=== PATIENT | female | born 1980 | race Caucasian/White ===

== ENCOUNTER 2019-04-01 17:51 | Day surgery (SDC) ==
[2019-04-01] MEDS ORDERED: NS 1,000 ML IV ONE ×2 (18:08→18:39)
--- NOTE | 2019-04-01 18:14 | PROVIDER DOCUMENTATION ---
HPI-Female /OB/Breast - General Stated Complaint: FEMALE Time Seen by Provider: 04/01/19 17:54 Source: reports: patient Allergies/Adverse Reactions: Patient Allergies Allergy/AdvReac Type Severity Reaction Status Date / Time cefaclor [From Ceclor] Allergy Severe ANAPHYLAXIS Verified 04/01/19 18:25 Home Medications: Home Medication List Medication Instructions Recorded Confirmed Last Taken Type Methadone HCl 27 mg PO DAILY 01/23/19 03/25/19 04/01/19 History Doxycycline 100 mg PO BID #10 tab 04/01/19 Unknown Rx Hydrocodone/Acetaminophen [Nowata 1 tab PO PRN PRN 04/01/19 04/01/19 04/01/19 History 7.5-325 Tablet] Ibuprofen [Ibu] 800 mg PO Q8H #90 tab 04/01/19 Unknown Rx Ferrous Sulfate 325 mg PO DAILY #30 tab 04/02/19 Unknown Rx - History of Present Illness-Female /OB Nature of Presenting Problem: 39 YO F presents with c/o vaginal bleeding and passing clots since today. 1 week ago she suffered miscarriage and was given medicine to pass the products by OBGYN. She was having minimal bleeding since then but it recently increased on today. Pt now feels faint and has been filling up pads and adult diapers with active vaginal bleeding. She follows with Dr. Delgado. Does patient report she is ?: No Location of complaint: reports: suprapubic Radiation: reports: none Quality of Pain: reports: cramping, pressure Severity in ED: reports: moderate Onset/Duration: reports: this afternoon Timing: reports: still present Context/Activities at Onset: reports: none Vaginal Symptoms: reports: abnormal bleeding, passing clots/tissue Vaginal Bleeding Amount: Copious/Excessive Urinary Symptoms: reports: no symptoms Related Symptoms: reports: pelvic pain, vaginal bleeding Similar Symptoms Previously?: No - LMP/ History : 2 Para: 1 : 1 Prior Delivery: vaginal Care: OB doctor Weeks/Months: 13 Age estimated by:: by dates Review of Systems - Adult - REVIEW OF SYSTEMS - ADULT Constitutional: denies: chills, fever Eyes: reports: no symptoms reported Ears, Nose, Mouth & Throat: reports: no symptoms reported Cardiovascular: denies: chest pain, palpitations, syncope Respiratory: reports: no symptoms reported Gastrointestinal: reports: see HPI, abdominal pain. denies: nausea, vomiting Genitourinary: reports: discharge, other (vaginal bleeding). denies: dysuria Musculoskeletal: reports: no symptoms reported Integumentary: reports: no symptoms reported Neurological: reports: no symptoms reported Psychiatric: reports: no symptoms reported Past History - Adult - PAST MEDICAL HISTORY-ADULT Review of Records: reports: Old Records Reviewed Major Childhood Illnesses: reports: history unknown Cardiovascular: reports: denies history Respiratory: reports: denies history Gastrointestinal: reports: denies history Obstetrical/Gynecological: reports: denies history Genitourinary: reports: denies history Musculoskeletal: reports: denies history Neurological: reports: denies history Endocrine/Immune: reports: denies history Other Conditions: reports: denies history - PRIOR SURGERIES/PROCEDURES Surgical/Procedure History: reports: appendectomy - IMMUNIZATION STATUS Childhood Immunizations: See Nurse Assessment Flu Vaccine: See Nurse Assessment - FAMILY HISTORY Family History: reviewed, not pertinent - SOCIAL HISTORY Smoking: cigarettes Substance Use: none presently/history of abuse, other (currently on methadone) Living Situation: family Physical Exam-General - PHYSICAL EXAM-ADULT Initial Vital Signs Reviewed: Yes - CONSTITUTIONAL General Appearance: alert, mild distress (from pain, tachycardia) - EYES Eyes: PERRL/EOMI, pink conjunctivae - HEAD, EARS, NOSE, MOUTH & THROAT HENMT: moist mucous membranes - NECK Neck: full range of motion - RESPIRATORY Respiratory: lungs clear, normal breath sounds, no respiratory distress - CARDIOVASCULAR Cardiovascular: tachycardia - GASTROINTESTINAL (ABDOMEN) Abdominal Exam: soft. negative: guarding, rigid, rebound - GENITOURINARY Female Genitalia/Pelvic Exam: active bleeding, other (passing clots) - MUSCULOSKELETAL Back Exam: normal inspection, no CVA tenderness Extremity: normal range of motion, normal gait - SKIN Integumentary: normal color, normal turgor, warm/dry - NEUROLOGIC Neurologic: grossly normal - PSYCHIATRIC Psych/Mental Status: oriented x 3, anxious Progress - PLAN OF CARE/RESULTS Progress/Plan/Lab Results: Orders Category Date Time Status Admit - [facility] Routine AdmDCTranf 04/01/19 19:28 Active Discharge/Transfer Patient Routine AdmDCTranf 04/02/19 08:05 Ordered Activity - Up Ad Beatrice ORDERED Care 04/01/19 21:20 Active Activity - Up with Assistance ORDERED Care 04/01/19 21:21 Active Activity - Up with Assistance ORDERED Care 04/01/19 22:42 Active Ambulate Patient-Not Phys Thx DAILY Care 04/01/19 21:21 Active Ambulate Patient-Not Phys Thx DAILY Care 04/01/19 22:42 Completed Apply Mechanical Device [QM] ORDERED Care 04/01/19 21:20 Active DVT/PE Risk Assess/Protocol [QM] ORDERED Care 04/01/19 19:28 Active Does patient desire to be vacc [QM] ONCE Care 04/02/19 00:49 Active Elevate Head of Bed DIRECTED Care 04/01/19 21:20 Active Elevate Head of Bed DIRECTED Care 04/01/19 22:42 Active IV Discontinuation ORDERED Care 04/02/19 08:05 Active Maintain Pain Control DIRECTED Care 04/01/19 21:20 Active Maintain Pain Control DIRECTED Care 04/01/19 22:42 Active May Shower .AM Care 04/01/19 21:20 Active Notify MD if DIRECTED Care 04/01/19 21:20 Active Post-Op Pneumonia Prevention DIRECTED Care 04/01/19 21:20 Completed Post-Op Pneumonia Prevention DIRECTED Care 04/01/19 22:41 Active Previous Flu Vaccine THIS SEAS [QM] ONCE Care 04/02/19 00:49 Active Saline Loc NOW Care 04/01/19 18:08 Active Surgery Consent (SOAP GRINDER Pt) .SUCTION DILATION AND Care 04/01/19 19:27 Active CURETTAGE Transfuse .Give-Transfuse Care 04/01/19 19:18 Active Turn, Cough and Deep Breathe Q2HR Care 04/01/19 21:20 Active Turn, Cough and Deep Breathe Q2HR Care 04/01/19 22:42 Active Vital Signs Order Q 8-HR ASSESS Care 04/01/19 19:28 Active Vital Signs Order Q4HR.AWAKE Care 04/01/19 21:20 Active US OBS COMPLETE < 14 WKS [US] Stat Exams 04/01/19 18:40 Ordered CBC WITH DIFF [HEME] Timed Lab 04/02/19 06:25 Completed CBC WITH ELECTRONIC DIFF [HEME] Stat Lab 04/01/19 18:17 Completed CBC WITH NO DIFF [HEME] Stat Lab 04/01/19 21:23 Completed COMPREHENSIVE METABOLIC PANEL [CHEM] Stat Lab 04/01/19 18:17 Completed LRPC (RED CELLS) [BBK] Stat Lab 04/01/19 18:17 Completed PROTIME WITH INR [COAG] Stat Lab 04/01/19 18:17 Completed PTT [COAG] Stat Lab 04/01/19 18:17 Completed QUANT TEST Stat Lab 04/01/19 18:17 Completed TYPE & SCREEN [BBK] Stat Lab 04/01/19 18:17 Completed 0.9% Sodium Chloride Inj [Ns] 1,000 ml Med 04/01/19 18:08 Discontinued IV 999 mls/hr 0.9% Sodium Chloride Inj [Ns] 1,000 ml Med 04/01/19 18:39 Discontinued IV 999 mls/hr 0.9% Sodium Chloride Inj [Ns] 500 ml Med 04/01/19 19:18 Discontinued IV As Directed mls/hr Albumin 25% Med 04/01/19 20:45 Discontinued 12.5 gm .ROUTE .STK-MED ONE Albumin 25% Med 04/01/19 20:45 Discontinued 12.5 gm .ROUTE .STK-MED ONE Chlorhexidine Gluconate [Peridex] Med 04/02/19 09:00 Discontinued 15 ml MT BID Doxycycline Med 04/02/19 09:00 Discontinued 100 mg PO BID Glycopyrrolate [Robinul] Med 04/01/19 19:47 Discontinued 0.2 mg .ROUTE .STK-MED ONE Hydrocodone/APAP 10 mg/325 mg [Nowata-10] Med 04/01/19 21:20 Discontinued 1 each PO Q4H PRN PRN Ibuprofen [Motrin] Med 04/01/19 21:30 Discontinued 800 mg PO Q8H Ketamine Med 04/01/19 20:26 Discontinued 500 mg .ROUTE .STK-MED ONE Ketorolac [Toradol] Med 04/01/19 18:53 Discontinued 30 mg .ROUTE .STK-MED ONE Ketorolac [Toradol] Med 04/01/19 18:45 Discontinued 30 mg IV NOW ONE Lactated Ringers Inj [Lr] 1,000 ml Med 04/01/19 21:30 Discontinued IV 125 mls/hr Lidocaine 2% Pf [Xylocaine-Mpf 2%] Med 04/01/19 19:47 Discontinued 5 ml .ROUTE .STK-MED ONE Methylergonovine [Methergine] Med 04/01/19 20:57 Discontinued 0.2 mg .ROUTE .STK-MED ONE Midazolam [Versed] Med 04/01/19 20:25 Discontinued 2 mg .ROUTE .STK-MED ONE Midazolam [Versed] Med 04/01/19 21:11 Discontinued 2 mg .ROUTE .STK-MED ONE Ondansetron [Zofran] Med 04/01/19 21:15 Discontinued 4 mg .ROUTE .STK-MED ONE Ondansetron [Zofran] Med 04/01/19 19:28 Discontinued 4 mg IV Q4H PRN PRN Oxycodone/APAP 10 mg/325 mg [Percocet-10] Med 04/01/19 18:33 Discontinued 1 each PO NOW ONE Propofol [Diprivan 1%] Med 04/01/19 19:47 Discontinued 200 mg .ROUTE .STK-MED ONE Incentive Spirometer Q4H Ot 04/01/19 21:30 Completed Incentive Spirometer Q4H Ot 04/01/19 22:45 Completed Incentive Spirometer Q4H Ot 04/02/19 01:30 Completed Incentive Spirometer Q4H Ot 04/02/19 02:45 Completed Incentive Spirometer Q4H Ot 04/02/19 05:30 Completed Incentive Spirometer Q4H Ot 04/02/19 06:45 Completed Result Diagrams: 04/02/19 06:25 04/01/19 18:17 - CONSULTS/PCP/HOSPITALIST Notification #1 *Consult/PCP/Hospitalist*: spoke with Dr. Estrada Time Discussed: 18:46 Consult Disposition: Will see in ED Departure - Departure Date of Disposition Decision: 04/01/19 Time of Disposition Decision: 19:50 DIAGNOSIS: Vaginal bleeding, Acute blood loss anemia, Incomplete miscarriage Disposition: OTHER 70 Certified Medical Emergency: Emergent Condition: Stable - Critical Care Note This patient required my direct & personal management of CC.: No Attestation - Physician/ REFUGIO Attestation The physician spent face to face time with patient:: Yes Advanced Practice Provider documentation review:: Supervising physician onsite and consulted in the evaluation and care of this patient. The physician did have a face to face encounter with the patient.
[2019-04-01] MEDS ORDERED: PERCOCET-10 PO ONE (18:33)
[2019-04-01 18:45] LABS: INR 1.03; PROTIME 13.6 Seconds (11.0-16.0)
[2019-04-01] MEDS ORDERED: TORADOL IV ONE (18:45)
[2019-04-01 18:46] LABS: PTT 32.5 Seconds (22.3-41.8)
[2019-04-01 18:51] LABS: BASO# 0.01 X1000 (0.0-0.2); BASO% 0.1 % (0.0-0.8); EOS# 0.14 X1000 (0.0-0.7); EOS% 1.3 % (0.0-10.0); HEMATOCRIT 27.3 % (37.0-47.0); IMM GRAN# 0.05 X1000 (0.0-0.04); IMM GRAN% 0.5 % (0.0-0.5); LYMPH# 2.38 X1000 (1.2-3.4); LYMPH% 22.4 % (20.5-51.1); MCH 31.7 PG (27-31); MCV 96.1 FL (81-99); MONO# 0.69 X1000 (0.11-0.59); MONO% 6.5 % (1.7-9.3); MPV 10.1 FL (7.4-10.4); NEUT# 7.36 X1000 (1.4-6.5); NEUT% 69.2 % (42.2-75.2); PLT 304 X1000 (130-400); RBC 2.84 XMIL (4.2-5.4); RDW 12.7 % (11.5-14.5); WBC 10.63 X1000 (4.8-10.8)
[2019-04-01 18:53] LABS: AGAP 14; ALB/GLOB RATIO 1.1; ALBUMIN 3.5 g/dL (3.5-5.0); ALKALINE PHOSPHATASE 57 U/L (32-104); BUN 7 mg/dL (8-22); CALCIUM 8.8 mg/dL (8.8-10.2); CHLORIDE 102 mmol/L (98-107); COSMO 274; CREATININE 0.5 mg/dL (0.5-0.9); ESTIMATED GFR > 60; GLUCOSE 99 mg/dL (70-104); GOT 13 U/L (10-30); GPT 6 U/L (10-36); POTASSIUM 3.4 mmol/L (3.5-5.1); SODIUM 138 mmol/L (136-145); TCO2 22 mmol/L (25-35); TOTAL BILIRUBIN < 0.15 mg/dL (0.20-1.00); TOTAL PROTEIN 6.6 g/dL (6.3-8.3)
[2019-04-01] MEDS ORDERED: TORADOL ONE (18:53)
[2019-04-01] MEDS ORDERED: NS 500 ML IV ONE (19:18)
[2019-04-01] MEDS ORDERED: ZOFRAN IV PRN (19:28)
[2019-04-01] MEDS ORDERED: XYLOCAINE-MPF 2% ONE (19:47)
[2019-04-01] MEDS ORDERED: ROBINUL ONE (19:47)
[2019-04-01] MEDS ORDERED: DIPRIVAN 1% ONE (19:47)
[2019-04-01] MEDS ORDERED: VERSED ONE ×2 (20:25→21:11)
[2019-04-01] MEDS ORDERED: KETAMINE ONE (20:26)
[2019-04-01] MEDS ORDERED: ALBUMIN 25% ONE ×2 (20:45)
[2019-04-01] MEDS ORDERED: METHERGINE ONE (20:57)
[2019-04-01] MEDS ORDERED: ZOFRAN ONE (21:15)
[2019-04-01] MEDS ORDERED: NORCO-10 PO PRN (21:20)
[2019-04-01 21:31] LABS: HEMOGLOBIN 7.3 g/dL (12.0-16.0); MCH 28.9 PG (27-31); MCHC 31.7 g/dL (33-37); MCV 90.9 FL (81-99); MPV 9.8 FL (7.4-10.4); RBC 2.53 XMIL (4.2-5.4); RDW 16.4 % (11.5-14.5); WBC 8.59 X1000 (4.8-10.8)
--- NOTE | 2019-04-02 00:38 | HISTORY AND PHYSICAL ---
HISTORY OF PRESENT ILLNESS: Ms Regalado is a 39-year-old G2, P1-0-1-1, who presents to the emergency room via ambulance with complaint of heavy vaginal bleeding x1 day. The patient reports passage of large blood clots starting today. History is significant for a 13 week miscarriage diagnosed 1 week ago. The patient was seen in the emergency department 1 week ago and reports passage of fetus and cord, which was sent to Pathology. The patient was given Cytotec for passage of remaining products of conception. However, patient only reports minimal bleeding since discharge from the emergency room 1 week ago until today, when large blood clots started to resume. The patient reports feeling faint, having shortness of breath and has been filling up pads and adult diapers within 1 to 2 hours. PAST MEDICAL HISTORY: Noncontributory. SURGICAL HISTORY: Appendectomy. MEDICATIONS: Lortab, methadone. GYNECOLOGIC HISTORY: Menarche at age 17. Denies any STD exposure. OBSTETRICAL HISTORY: G2, P1-0-1-1. Last vaginal delivery 11 years ago. ALLERGIES: Cefaclor, reaction swelling in the neck. SOCIAL HISTORY: Positive tobacco use, admits to 4 cigarettes a day currently. Denies alcohol use. Positive drug use, methadone 27 mg daily. The patient reports she is weaning down her dose of methadone. FAMILY HISTORY: Noncontributory. VITAL SIGNS: Temperature 97.8 degrees, pulse rate 136, respiration rate 18, blood pressure 123/78, O2 sats 98% on room air. Height 5 feet 4 inches, weight 115 pounds. BMI 19.7 kg/m2. PHYSICAL EXAMINATION: GENERAL: No acute distress. Alert, awake, oriented x3. RESPIRATORY: Clear to auscultation bilaterally. Negative rhonchi, rales, or wheezing. CARDIOVASCULAR: Tachycardic. GASTROINTESTINAL: Soft, nontender to palpation. Negative guarding or rebound. PELVIC: Dilated cervical os with multiple clots removed from os and noted products of conception. EXTREMITIES: No calf tenderness. Negative edema. LABS: WBCs 10.63, hemoglobin 9, hematocrit 27.3, platelets 304,000. PT 13.2, INR 1.03, PTT 32.5. BUN 7, creatinine 0.5. quant 9078. ASSESSMENT: Ms Regalado is a 39-year-old G2, P1-0-1-1, who presents with incomplete complicated by heavy vaginal bleeding. PLAN: 1. Admit to [facility] for emergent suction D and C. 2. Type and screen patient. 3. Prepare for 2 units of packed red blood cells blood transfusion. 4. Start IV fluids. 5. Rh positive status noted. 6. Reviewed alternatives, benefits and risks of suction D and C with patient. Risks not limited to infection, bleeding, injury to surrounding organs, including uterine puncture, bladder injury, bowel injury, or injury of nerves or major blood vessels. The patient understands risks and agrees to the above procedure. [facility]
[2019-04-02] MEDS: MOTRIN PO SCH ×2 (00:53→06:25)
[2019-04-02] MEDS: LR 1,000 ML IV SCH ×2 (03:31→06:26)
[2019-04-02 06:51] LABS: BASO# 0.01 X1000 (0.0-0.2); BASO% 0.1 % (0.0-0.8); EOS# 0.15 X1000 (0.0-0.7); EOS% 1.7 % (0.0-10.0); HEMATOCRIT 28.5 % (37.0-47.0); HEMOGLOBIN 9.3 g/dL (12.0-16.0); IMM GRAN# 0.06 X1000 (0.0-0.04); IMM GRAN% 0.7 % (0.0-0.5); LYMPH# 2.56 X1000 (1.2-3.4); LYMPH% 29.1 % (20.5-51.1); MCH 29.3 PG (27-31); MCHC 32.6 g/dL (33-37); MCV 89.9 FL (81-99); MONO# 0.52 X1000 (0.11-0.59); MONO% 5.9 % (1.7-9.3); MPV 9.9 FL (7.4-10.4); NEUT% 62.5 % (42.2-75.2); PLT 212 X1000 (130-400); RBC 3.17 XMIL (4.2-5.4); RDW 17.2 % (11.5-14.5)
[2019-04-02 07:30] VITALS: BP 90/40
--- NOTE | 2019-04-02 08:13 | OB/GYN PROGRESS NOTE ---
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 Progress Note: Vital Signs - 24 hr 04/01/19 18:10 04/01/19 20:12 04/01/19 20:19 Temperature 97.8 F 98.2 F 98.0 F Pulse Rate 136 H 130 H 135 H Respiratory Rate 18 10 L 12 Blood Pressure 123/78 89/52 48/33 Blood Pressure [Right Arm] O2 Sat by Pulse Oximetry 98 100 99 04/01/19 20:20 04/01/19 20:23 04/01/19 20:53 Temperature 98.2 F 98.1 F 96.0 F L Pulse Rate 130 H 131 H 132 H Respiratory Rate 10 L 16 12 Blood Pressure 89/52 66/41 110/65 Blood Pressure [Right Arm] O2 Sat by Pulse Oximetry 99 04/01/19 21:00 04/01/19 21:09 04/01/19 21:10 Temperature 98.1 F 96.0 F L Pulse Rate 129 H 136 H 120 H Respiratory Rate 16 12 18 Blood Pressure 66/41 107/68 Blood Pressure [Right Arm] 89/48 94/61 O2 Sat by Pulse Oximetry 100 100 04/01/19 21:20 04/01/19 21:22 04/01/19 21:25 Temperature 97.2 F L 97.2 F L Pulse Rate 120 H 118 H Respiratory Rate 13 21 Blood Pressure 101/70 66/41 Blood Pressure [Right Arm] 101/71 O2 Sat by Pulse Oximetry 100 04/01/19 21:30 04/01/19 21:44 04/01/19 22:00 Temperature 98.3 F Pulse Rate 119 H 107 H 116 H Respiratory Rate 13 16 16 Blood Pressure 99/62 Blood Pressure [Right Arm] 93/60 92/63 O2 Sat by Pulse Oximetry 99 99 100 04/01/19 22:15 04/01/19 22:30 04/01/19 22:41 Temperature Pulse Rate 110 H 111 H 114 H Respiratory Rate Blood Pressure 101/72 111/67 99/62 Blood Pressure [Right Arm] O2 Sat by Pulse Oximetry 100 99 100 04/01/19 22:45 04/01/19 22:58 04/01/19 22:59 Temperature 98.3 F Pulse Rate 100 H 103 H Respiratory Rate 14 Blood Pressure 99/61 96/63 105/66 Blood Pressure [Right Arm] O2 Sat by Pulse Oximetry 96 100 04/01/19 23:21 04/01/19 23:30 04/02/19 00:00 Temperature 98.2 F Pulse Rate 101 H 89 91 H Respiratory Rate 16 Blood Pressure 98/63 100/64 90/56 Blood Pressure [Right Arm] O2 Sat by Pulse Oximetry 100 96 04/02/19 00:30 04/02/19 01:00 04/02/19 01:30 Temperature Pulse Rate 97 H 108 H 92 H Respiratory Rate Blood Pressure 99/59 86/53 90/52 Blood Pressure [Right Arm] O2 Sat by Pulse Oximetry 04/02/19 01:41 04/02/19 02:00 04/02/19 03:00 Temperature 98.1 F Pulse Rate 99 H 88 86 Respiratory Rate 16 Blood Pressure 90/52 85/53 84/56 Blood Pressure [Right Arm] O2 Sat by Pulse Oximetry 100 04/02/19 04:00 04/02/19 07:29 Temperature 97.8 F Pulse Rate 95 H 79 Respiratory Rate 16 Blood Pressure 80/50 90/40 Blood Pressure [Right Arm] O2 Sat by Pulse Oximetry 99 94 L Laboratory Results - last 24 hr 04/01/19 04/01/19 04/01/19 18:17 18:17 18:17 WBC 10.63 RBC 2.84 L Hgb 9.0 L Hct 27.3 L MCV 96.1 MCH 31.7 H MCHC 33.0 RDW Std Deviation 12.7 Plt Count 304 MPV 10.1 Immature Gran % (Auto) 0.5 Neut % (Auto) 69.2 Lymph % (Auto) 22.4 [place] % (Auto) 6.5 Eos % (Auto) 1.3 Baso % (Auto) 0.1 Immature Gran # (Auto) 0.05 H Neut # (Auto) 7.36 H Lymph # (Auto) 2.38 [place] # (Auto) 0.69 H Eos # (Auto) 0.14 Baso # (Auto) 0.01 PT 13.6 INR 1.03 PTT (Actin FS) 32.5 Sodium 138 Potassium 3.4 L Chloride 102 Carbon Dioxide 22 L Anion Gap 14 BUN 7 L Creatinine 0.5 Estimated GFR/1.73 m2 > 60 BUN/Creatinine Ratio 14 Glucose 99 Calculated Osmolality 274 Calcium 8.8 Total Bilirubin < 0.15 L AST 13 ALT 6 L Alkaline Phosphatase 57 Total Protein 6.6 Albumin 3.5 Globulin 3.1 Albumin/Globulin Ratio 1.1 Ser , Semi-Qnt Blood Type Antibody Screen Crossmatch 04/01/19 04/01/19 04/01/19 18:17 18:17 21:23 WBC 8.59 RBC 2.53 L Hgb 7.3 L D Hct 23.0 L MCV 90.9 MCH 28.9 MCHC 31.7 L RDW Std Deviation 16.4 H Plt Count 198 D MPV 9.8 Immature Gran % (Auto) Neut % (Auto) Lymph % (Auto) [place] % (Auto) Eos % (Auto) Baso % (Auto) Immature Gran # (Auto) Neut # (Auto) Lymph # (Auto) [place] # (Auto) Eos # (Auto) Baso # (Auto) PT INR PTT (Actin FS) Sodium Potassium Chloride Carbon Dioxide Anion Gap BUN Creatinine Estimated GFR/1.73 m2 BUN/Creatinine Ratio Glucose Calculated Osmolality Calcium Total Bilirubin AST ALT Alkaline Phosphatase Total Protein Albumin Globulin Albumin/Globulin Ratio Ser , Semi-Qnt 9078.0 Blood Type A POSITIVE Antibody Screen NEGATIVE Crossmatch See Detail 04/02/19 06:25 WBC 8.80 RBC 3.17 L Hgb 9.3 L D Hct 28.5 L D MCV 89.9 MCH 29.3 MCHC 32.6 L RDW Std Deviation 17.2 H Plt Count 212 MPV 9.9 Immature Gran % (Auto) 0.7 H Neut % (Auto) 62.5 Lymph % (Auto) 29.1 [place] % (Auto) 5.9 Eos % (Auto) 1.7 Baso % (Auto) 0.1 Immature Gran # (Auto) 0.06 H Neut # (Auto) 5.50 Lymph # (Auto) 2.56 [place] # (Auto) 0.52 Eos # (Auto) 0.15 Baso # (Auto) 0.01 PT INR PTT (Actin FS) Sodium Potassium Chloride Carbon Dioxide Anion Gap BUN Creatinine Estimated GFR/1.73 m2 BUN/Creatinine Ratio Glucose Calculated Osmolality Calcium Total Bilirubin AST ALT Alkaline Phosphatase Total Protein Albumin Globulin Albumin/Globulin Ratio Ser , Semi-Qnt Blood Type Antibody Screen Crossmatch
--- NOTE | 2019-04-02 08:42 | OB/GYN PROGRESS NOTE ---
Progress Note [employer]DER - . Patient Problems: Current Active Problems Problem Status Onset Incomplete miscarriage Acute Vaginal bleeding Acute Acute blood loss anemia Acute [employer] Progress Note: Vital Signs - 24 hr 04/01/19 18:10 04/01/19 20:12 04/01/19 20:19 Temperature 97.8 F 98.2 F 98.0 F Pulse Rate 136 H 130 H 135 H Respiratory Rate 18 10 L 12 Blood Pressure 123/78 89/52 48/33 Blood Pressure [Right Arm] O2 Sat by Pulse Oximetry 98 100 99 04/01/19 20:20 04/01/19 20:23 04/01/19 20:53 Temperature 98.2 F 98.1 F 96.0 F L Pulse Rate 130 H 131 H 132 H Respiratory Rate 10 L 16 12 Blood Pressure 89/52 66/41 110/65 Blood Pressure [Right Arm] O2 Sat by Pulse Oximetry 99 04/01/19 21:00 04/01/19 21:09 04/01/19 21:10 Temperature 98.1 F 96.0 F L Pulse Rate 129 H 136 H 120 H Respiratory Rate 16 12 18 Blood Pressure 66/41 107/68 Blood Pressure [Right Arm] 89/48 94/61 O2 Sat by Pulse Oximetry 100 100 04/01/19 21:20 04/01/19 21:22 04/01/19 21:25 Temperature 97.2 F L 97.2 F L Pulse Rate 120 H 118 H Respiratory Rate 13 21 Blood Pressure 101/70 66/41 Blood Pressure [Right Arm] 101/71 O2 Sat by Pulse Oximetry 100 04/01/19 21:30 04/01/19 21:44 04/01/19 22:00 Temperature 98.3 F Pulse Rate 119 H 107 H 116 H Respiratory Rate 13 16 16 Blood Pressure 99/62 Blood Pressure [Right Arm] 93/60 92/63 O2 Sat by Pulse Oximetry 99 99 100 04/01/19 22:15 04/01/19 22:30 04/01/19 22:41 Temperature Pulse Rate 110 H 111 H 114 H Respiratory Rate Blood Pressure 101/72 111/67 99/62 Blood Pressure [Right Arm] O2 Sat by Pulse Oximetry 100 99 100 04/01/19 22:45 04/01/19 22:58 04/01/19 22:59 Temperature 98.3 F Pulse Rate 100 H 103 H Respiratory Rate 14 Blood Pressure 99/61 96/63 105/66 Blood Pressure [Right Arm] O2 Sat by Pulse Oximetry 96 100 04/01/19 23:21 04/01/19 23:30 04/02/19 00:00 Temperature 98.2 F Pulse Rate 101 H 89 91 H Respiratory Rate 16 Blood Pressure 98/63 100/64 90/56 Blood Pressure [Right Arm] O2 Sat by Pulse Oximetry 100 96 04/02/19 00:30 04/02/19 01:00 04/02/19 01:30 Temperature Pulse Rate 97 H 108 H 92 H Respiratory Rate Blood Pressure 99/59 86/53 90/52 Blood Pressure [Right Arm] O2 Sat by Pulse Oximetry 04/02/19 01:41 04/02/19 02:00 04/02/19 03:00 Temperature 98.1 F Pulse Rate 99 H 88 86 Respiratory Rate 16 Blood Pressure 90/52 85/53 84/56 Blood Pressure [Right Arm] O2 Sat by Pulse Oximetry 100 04/02/19 04:00 04/02/19 07:29 04/02/19 08:08 Temperature 97.8 F Pulse Rate 95 H 79 Respiratory Rate 16 Blood Pressure 80/50 90/40 Blood Pressure [Right Arm] O2 Sat by Pulse Oximetry 99 94 L 99 Laboratory Results - last 24 hr 04/01/19 04/01/19 04/01/19 18:17 18:17 18:17 WBC 10.63 RBC 2.84 L Hgb 9.0 L Hct 27.3 L MCV 96.1 MCH 31.7 H MCHC 33.0 RDW Std Deviation 12.7 Plt Count 304 MPV 10.1 Immature Gran % (Auto) 0.5 Neut % (Auto) 69.2 Lymph % (Auto) 22.4 [place] % (Auto) 6.5 Eos % (Auto) 1.3 Baso % (Auto) 0.1 Immature Gran # (Auto) 0.05 H Neut # (Auto) 7.36 H Lymph # (Auto) 2.38 [place] # (Auto) 0.69 H Eos # (Auto) 0.14 Baso # (Auto) 0.01 PT 13.6 INR 1.03 PTT (Actin FS) 32.5 Sodium 138 Potassium 3.4 L Chloride 102 Carbon Dioxide 22 L Anion Gap 14 BUN 7 L Creatinine 0.5 Estimated GFR/1.73 m2 > 60 BUN/Creatinine Ratio 14 Glucose 99 Calculated Osmolality 274 Calcium 8.8 Total Bilirubin < 0.15 L AST 13 ALT 6 L Alkaline Phosphatase 57 Total Protein 6.6 Albumin 3.5 Globulin 3.1 Albumin/Globulin Ratio 1.1 Ser , Semi-Qnt Blood Type Antibody Screen Crossmatch 04/01/19 04/01/19 04/01/19 18:17 18:17 21:23 WBC 8.59 RBC 2.53 L Hgb 7.3 L D Hct 23.0 L MCV 90.9 MCH 28.9 MCHC 31.7 L RDW Std Deviation 16.4 H Plt Count 198 D MPV 9.8 Immature Gran % (Auto) Neut % (Auto) Lymph % (Auto) [place] % (Auto) Eos % (Auto) Baso % (Auto) Immature Gran # (Auto) Neut # (Auto) Lymph # (Auto) [place] # (Auto) Eos # (Auto) Baso # (Auto) PT INR PTT (Actin FS) Sodium Potassium Chloride Carbon Dioxide Anion Gap BUN Creatinine Estimated GFR/1.73 m2 BUN/Creatinine Ratio Glucose Calculated Osmolality Calcium Total Bilirubin AST ALT Alkaline Phosphatase Total Protein Albumin Globulin Albumin/Globulin Ratio Ser , Semi-Qnt 9078.0 Blood Type A POSITIVE Antibody Screen NEGATIVE Crossmatch See Detail 04/02/19 06:25 WBC 8.80 RBC 3.17 L Hgb 9.3 L D Hct 28.5 L D MCV 89.9 MCH 29.3 MCHC 32.6 L RDW Std Deviation 17.2 H Plt Count 212 MPV 9.9 Immature Gran % (Auto) 0.7 H Neut % (Auto) 62.5 Lymph % (Auto) 29.1 [place] % (Auto) 5.9 Eos % (Auto) 1.7 Baso % (Auto) 0.1 Immature Gran # (Auto) 0.06 H Neut # (Auto) 5.50 Lymph # (Auto) 2.56 [place] # (Auto) 0.52 Eos # (Auto) 0.15 Baso # (Auto) 0.01 PT INR PTT (Actin FS) Sodium Potassium Chloride Carbon Dioxide Anion Gap BUN Creatinine Estimated GFR/1.73 m2 BUN/Creatinine Ratio Glucose Calculated Osmolality Calcium Total Bilirubin AST ALT Alkaline Phosphatase Total Protein Albumin Globulin Albumin/Globulin Ratio Ser , Semi-Qnt Blood Type Antibody Screen Crossmatch S/P her 3rd unit PRBC, post op- Hgb and Hct up to 9.3/28.5. Stable since D&C. Pulse 80-90's. Doing well and no c/o at present "doing much better." No CP or SOB, No lightheadedness or dizziness. Ambulating to bathroom without difficulty. No N/V tolerating PO. Voiding without difficulty. Very minimal spotting only post op. No pain just some very mild menstrual like cramps per patient. States "ready to go home." Patient does get Methadone 27mg dose and is due at the [facility] at 11:00 am today. "Need to get there." PE: A&O x 3 in NAD. Resting comfortably. Pulse 80-90's. BP 80-90's/50's. Pulse Ox 99% on RA. 97.8 degrees. CV- RRR, no murmur appreciated. Lungs- CTA bilaterally Abd - Soft, ND/NT and no R/G. No peritoneal signs. Pelvic- deferred. Perineum/pad visualized and no blood noted. Ext- no calf pain and no edema. ASSESSMENT: Incomplete AB status post D&C and blood transfusion secondary to associated anemia. DISCHARGE NOTE (full dictation D/C #[id number]) PLAN: 1. Doing well, Stable, D/C to Home. 2. Follow up with Dr. Delgado in 7-10 days 3. Rx FeSO4 325mg po q day written #30 no refills. Discussed can get OTC as well. Take with OJ. Patient already takes a multi vitamin and B12. 4. Motrin/Tylenol OTC OK for mild cramping. 5. Patient and boyfriend asking if I can call [facility] center to ask for emergency dose of Methadone x 2 so that they do not have to go in at 7:45am Friday and Friday so she can rest. Going there at 11:00 today. Discussed that I can make the phone call that she had surgery and has been in the hospital but it is up to the dispensary center and the physician/pharmacist there if they can honor that request. Patient states understanding. Called [facility] and spoke with Nadira her counselor there. Nadira thankful for the call and states that she will have to discuss if they can or will do that. Spoke with patient again and notified that I spoke with Nadira about the request. Patient thankful. 6. No driving until pain free or if on any medication that can effect her adversely like Methadone -states that her "boyfriend drives everywhere" No sex for 2-3 weeks recommended. Call office if ANY problems questions or concerns. 7. Patient is a smoker. Discussed with patient and recommended cessation. Health risks discussed.
[2019-04-02] MEDS ORDERED: DOXYCYCLINE PO SCH (09:00)
[2019-04-02] MEDS ORDERED: PERIDEX MT SCH (09:00)
--- NOTE | 2019-04-02 15:50 | DISCHARGE SUMMARY ---
ADMISSION DATE: 04/01/2019 DISCHARGE DATE: 04/02/2019 PRINCIPAL DIAGNOSIS: Incomplete status post dilation and curettage. ADDITIONAL DIAGNOSIS: Anemia secondary to incomplete status post transfusion. DISCHARGE SUMMARY: The patient is a 39-year-old female that presented through the emergency department on 04/01/2019 with complaints of increased and heavy vaginal bleeding. She was known to have a miscarriage a week ago, and was given Cytotec and her spotting had picked up to heavy bleeding and cramping. Therefore, she came to the emergency room. Blood counts were checked. She was found to have a hemoglobin of 9.0 on entry, dropped to 7.3. She did undergo a D & C with Dr. Estrada and was kept for overnight observation and follow-up. CBC in the morning 04/02/19 after the 3rd unit. Hemoglobin, hematocrit were 9.3 and 28.5 respectively. The patient was doing well without complaints. Minimal to no vaginal bleeding and very minimal cramping. She is ambulating without difficulty. No chest pain. No shortness of breath. No lightheadedness or dizziness. Pulse was in the 80s to 90s. The patient was stable. She is on methadone for history of addiction on 27 mg dose daily that she gets at 11 a.m. through the [facility] and is ready for discharge to go there. Upon visit with patient on day of discharge, she and her boyfriend were asking of I could call the clinic to see if they could get 2 emergency doses, so they would not have to travel in on the weekend, daily at 7:45 a.m. to allow her to rest for the weekend. A phone call was made to her counselor, Nadira, at , and I did verify that the patient was in the hospital, and had surgery and what the patient's request was. [facility] was thankful for call. I discussed with Maribel that I called center but is up to the [facility] when she checks in today if they will go ahead and give out any methadone for home going versus her having to come in to get dosed daily. She is instructed to follow up with Dr. Delgado in 7 to 10 days for a postop check. To call or be seen if any problems or questions or concerns arise sooner. She is given a prescription for iron sulfate 325 mg 1 pill daily written #30, no refills. I discussed with the patient she can get that [id number] as well if she chooses not to fill the script. I discussed to take with orange juice to help decrease GI side effects. The patient does already take a multivitamin and B12. She can take Motrin or Tylenol [id number], whatever she normally uses for some mild cramping if she has it. Restrictions were discussed. I discussed no driving until pain free or if she is on any medication that can affect her adversely like the methadone. She states that "her boyfriend drives her everywhere." I did discuss only real restriction is no sex for 2 to 3 weeks postoperatively and no tampon use due to risk for infection. Regular diet and activities for home going. The patient is a smoker. I did discuss the patient and recommended cessation. The patient at the present time is not overly interested, but will consider. Health risks of smoking were discussed. cc: Gunjan Gabriel MD MTDD
--- NOTE | 2019-05-31 20:42 | OPERATIVE NOTE ---
PROCEDURE DATE: 04/01/2019 SURGEON: Francesca Estrada DO. STUMMEL SELECTOR: None. PREOPERATIVE DIAGNOSIS: 1. Incomplete . 2. Heavy vaginal bleeding. POSTOPERATIVE DIAGNOSIS: 1. Incomplete . 2. Heavy vaginal bleeding. PROCEDURE PERFORMED: Suction dilation and curettage. ANESTHESIA: General endotracheal anesthesia. ESTIMATED BLOOD LOSS: 500 mL. URINE OUTPUT: 100 mL of clear urine. FINDINGS: 2 cm dilated cervix, 12 to 13 cm size uterus anteverted, mobile, negative adnexal masses palpated. SPECIMENS REMOVED: Products of conception. COMPLICATIONS: None. SURGICAL RISKS: The patient was informed of the risks and benefits of the procedure. Risks include but were not limited to bleeding, infection, injury to the vulva, vagina or cervix and uterine perforation. The patient expressed understanding of the risks involved. All questions were answered and the patient consented to the procedure. DESCRIPTION OF PROCEDURE: The patient was taken to the operating room where a time-out was performed to confirm correct patient and correct procedure. Anesthesia was established and the patient was positioned on the operating table in a dorsal lithotomy position with the legs supported using stirrups. The patient was then prepped and draped in the usual sterile fashion. A bimanual exam was performed and showed a 2 cm dilated cervix with a 12 cm size mobile uterus. A straight catheter was inserted into the bladder and 100 mL of clear yellow urine was obtained. A weighted speculum was inserted into the vagina and the cervix was visualized and grasped with the single-tooth tenaculum. A curved suction curette was advanced to the fundus of the uterus and then suction was applied and the curette was rotated in a circular fashion as the curette was withdrawn. The suction was relieved at the internal os and the curette was again advanced to the fundus. This was repeated until no further products were obtained. The suction curette was then withdrawn and a sharp curette was advanced to the fundus. The uterus was curetted in a systematic manner covering all surfaces until a gritty texture was noted throughout. The suction curette was reintroduced 1 final time and the uterine cavity was cleared of all remaining products or curettings. The suction curette was then withdrawn. The single-tooth tenaculum was removed from the anterior lip of the cervix. The lower uterine segment was noted to be dilated with atony and vigorous uterine massage was performed. IV Pitocin was given as well as 1000 mcg of Cytotec per rectum to assist with uterine contractions and to decrease uterine bleeding. Good hemostasis was eventually noted. The weighted speculum was then removed from the vagina. At completion of the procedure, all needle, sponge, and instrument counts were noted to be correct x2. The patient tolerated procedure well and was transferred to the recovery room in stable condition.
== END 2019-04-02 08:40 | disposition home or self-care (01) ==
LOC: ED 17:51 → OPS 18:10 → INTOOBSV 22:27 → 4N 22:27 → OPS 04-02 08:40
PROVIDERS: ATTEND Obstetrics & Gynecology